=== PATIENT | female | born 1970 | race African-American/Black ===

== ENCOUNTER → 2017-06-19 16:48 | Outpatient (CLI) | payer BC ==
[2012-03-26 06:24] VITALS: BMI 30.7
== END | disposition home or self-care (01) ==
LOC: D.MAMMO 16:00
DX: Z12.31 Encounter for screening mammogram for malignant neoplasm of breast (principal)

== ENCOUNTER 2019-06-30 11:22 | Outpatient (CLI) | payer BC ==
[2012-03-26 06:24] VITALS: BMI 30.7
== END 2019-06-30 23:59 | disposition home or self-care (01) ==
LOC: D.MAMMO 11:22
PROVIDERS: ATTEND Family Medicine
DX: Z12.31 Encounter for screening mammogram for malignant neoplasm of breast (principal)

== ENCOUNTER 2020-07-04 15:15 | Outpatient (CLI) | payer BC ==
[2012-03-26 06:24] VITALS: BMI 30.7
== END 2020-07-04 16:45 | disposition home or self-care (01) ==
LOC: D.MAMMO 15:15
PROVIDERS: ATTEND Family Medicine
DX: Z12.31 Encounter for screening mammogram for malignant neoplasm of breast (principal)